=== PATIENT | female | born 1985 | race Caucasian/White ===

== ENCOUNTER 2017-06-26 01:12 | Emergency (ER) | payer OTHER ==
[~2017-06-26] VITALS: Ht 152.4 cm; Wt 73.0 kg
[~2017-06-26 01:12] MED LIST: AMOXICILLIN500 MG OR; AMOXICILLIN500 MG PO; CEPHALEXIN500 M1 PO; CEPHALEXIN500 MG PO; CIPRO500 MG OR; CLARITIN10 MG OR; DENIES CURRENT MEDS; FIORICET PO; FLEXERIL OR; FLONASE SPRAY50 MC1; IRON160 MG OR; LORTAB 5 OR; MIRENA IU; MULT VITAMIN OR; NAPROSYN500 MG OR; NO HOME MEDS; PERCOCET 5/325M1 TAB OR; ROBITUSSIN AC10 ML OR; ULTRAM50 M1 PO; ZOFRAN4 MG/TAB PO
[2017-06-26] MEDS ORDERED: AMOXICILLIN500 MG PO (01:55)
[2017-06-26] MEDS ORDERED: LORTAB 1010 MG PO (01:55)
[2017-06-26 02:07] VITALS: BP 161/99
== END 2017-06-26 02:40 | disposition home or self-care (01) | DRG 159 ==
LOC: ED 01:12
DX: K04.7 Periapical abscess without sinus (principal); F17.210 Nicotine dependence, cigarettes, uncomplicated; K08.89 Other specified disorders of teeth and supporting structures; S02.5XXA Fracture of tooth (traumatic), initial encounter for closed fracture

== ENCOUNTER 2018-01-18 18:10 | Emergency (ER) | payer OTHER ==
[~2018-01-18] VITALS: Ht 152.4 cm; Wt 79.5 kg
[~2018-01-18 18:10] MED LIST changes: +LORTAB 1010 MG PO
[2018-01-18] MEDS ORDERED: MOTRIN400 MG PO (18:39)
[2018-01-18] MEDS ORDERED: AUGMENTIN875TAB PO (18:39)
[2018-01-18 19:00] VITALS: BP 138/81
== END 2018-01-18 19:00 | disposition home or self-care (01) ==
LOC: ED 18:10
DX: K08.89 Other specified disorders of teeth and supporting structures (principal); K03.81 Cracked tooth; F17.210 Nicotine dependence, cigarettes, uncomplicated

== ENCOUNTER 2021-12-10 16:24 | Emergency (ER) | payer OTHER ==
[~2021-12-10] VITALS: Ht 152.4 cm; Wt 81.0 kg
[~2021-12-10 16:24] MED LIST changes: +AUGMENTIN875TAB PO; +MOTRIN400 MG PO
[2021-12-10 16:30] VITALS: BP 124/67
[2021-12-10 16:46] VITALS: BP 135/72
[2021-12-10 17:17] LABS: HEMATOCRIT 40.2 % (37.0-47.0); HEMOGLOBIN 12.9 g/dl (12.0-16.0); IMMATURE GRANULOCYTES 0.3 % (0.0-5.0); MEAN CORPUSCULAR HGB 32.1 pG CALC (26.0-32.0); MEAN CORPUSCULAR HGB CONC 32.1 g/dL CAL (32.0-36.0); NEUT# 16.13 thou/uL (2.00-7.15); RED BLOOD COUNT 4.02 mill/uL (4.20-5.60); RED CELL DISTRI WIDTH 13.5 % (11.5-15.5)
[2021-12-10 17:24] LABS: ALKALINE PHOSPHATASE 59 u/l (38-126); ANION GAP 12 (6-22 (CALC)); BILIRUBIN, TOTAL 0.3 mg/dL (0.0-1.4); BUN 8 mg/dL (7-17); BUN/CREATININE RATIO 11 (12-20 (CALC)); CHLORIDE 109 mmol/l (95-108); CREATININE 0.7 mg/dL (0.5-1.0); ETHYL ALCOHOL 0 mg/dl (0-30); GFR FOR AFR.AMER. > 60 ML/MIN (>=60 (CALC)); GFR OTHER RACES > 60 ML/MIN (>=60 (CALC)); SGOT/AST 17 u/l (14-36); SODIUM 140 mmol/l (137-146); TOTAL PROTEIN 6.8 g/dL (6.3-8.2)
[2021-12-10 17:25] LABS: CARBON DIOXIDE 23 mmol/l (22-30)
[2021-12-10 18:05] VITALS: BP 124/67
== END 2021-12-10 17:30 | disposition left against medical advice (07) ==
LOC: ED 16:24
PROVIDERS: Family Medicine
DX: R51.9 Headache, unspecified (principal); D72.829 Elevated white blood cell count, unspecified; M54.50 Low back pain, unspecified; Z91.19 Patient's noncompliance with other medical treatment and regimen

== ENCOUNTER 2022-04-24 21:00 | Emergency (ER) | payer OTHER ==
[~2022-04-24] VITALS: Ht 152.4 cm; Wt 85.9 kg
[2022-04-24] MEDS ORDERED: SUBOXONE1 MI1 SL (21:33)
[2022-04-24] MEDS ORDERED: WELLBUTRIN XL300 MG PO (21:38)
[2022-04-24] MEDS ORDERED: ATORVASTATIN CA10 MG PO (21:39)
[2022-04-24 21:46] VITALS: BP 130/86
== END 2022-04-24 21:46 | disposition home or self-care (01) ==
LOC: ED 21:00
DX: S50.811A Abrasion of right forearm, initial encounter (principal); W22.8XXA Striking against or struck by other objects, initial encounter

== ENCOUNTER 2022-07-08 18:37 | Emergency (ER) | payer OTHER ==
[~2022-07-08] VITALS: Ht 152.4 cm; Wt 84.0 kg
[2022-07-08] VITALS (8 sets, daily range): BP systolic 78–129; BP diastolic 57–70
[~2022-07-08 18:37] MED LIST changes: +ATORVASTATIN CA10 MG PO; +SUBOXONE1 MI1 SL; +WELLBUTRIN XL300 MG PO
[2022-07-08] MEDS ORDERED: VOLTAREN75 MG PO (20:18)
== END 2022-07-08 21:06 | disposition home or self-care (01) ==
LOC: ED 18:37
DX: S83.92XA Sprain of unspecified site of left knee, initial encounter (principal); E78.00 Pure hypercholesterolemia, unspecified; W17.89XA Other fall from one level to another, initial encounter

== ENCOUNTER 2022-12-01 18:24 | Emergency (ER) | payer OTHER ==
[~2022-12-01] VITALS: Ht 152.4 cm; Wt 80.2 kg
[~2022-12-01 18:24] MED LIST changes: +VOLTAREN75 MG PO
[2022-12-01] MEDS ORDERED: LYRICA25 MG PO (18:33)
[2022-12-01 19:00] VITALS: BP 148/79
[2022-12-01 19:05] LABS: BASO% 0.6 % (0-3); HEMATOCRIT 51.6 % (37.0-47.0); HEMOGLOBIN 16.7 g/dl (12.0-16.0); IMMATURE GRANULOCYTES 0.2 % (0.0-5.0); LYMPH% 22.9 % (15-41); MEAN CELL VOLUME 99.4 fL CALC (80.0-100.0); MEAN CORPUSCULAR HGB 32.2 pG CALC (26.0-32.0); MEAN CORPUSCULAR HGB CONC 32.4 g/dL CAL (32.0-36.0); NEUT# 6.99 thou/uL (2.00-7.15); NEUT% 68.3 % (42-76); RED BLOOD COUNT 5.19 mill/uL (4.20-5.60); RED CELL DISTRI WIDTH 13.3 % (11.5-15.5)
[2022-12-01 19:17] LABS: ALBUMIN 4.5 g/dL (3.2-5.0); ALKALINE PHOSPHATASE 100 u/l (38-126); ANION GAP 12 (6-22 (CALC)); BILIRUBIN, TOTAL 0.3 mg/dL (0.02-1.3); BUN 9 mg/dL (7-17); BUN/CREATININE RATIO 9 (12-20 (CALC)); CARBON DIOXIDE 24 mmol/l (22-30); CHLORIDE 106 mmol/l (95-108); GFR FOR AFR.AMER. > 60 ML/MIN (>=60 (CALC)); GFR OTHER RACES > 60 ML/MIN (>=60 (CALC)); POTASSIUM 3.6 mmol/l (3.5-5.1); SGOT/AST 25 u/l (14-36); SODIUM 139 mmol/l (137-146); TOTAL PROTEIN 7.9 g/dL (6.3-8.2)
[2022-12-01 19:28] LABS: URINE BILIRUBIN - DIPSTICK NEGATIVE (NEGATIVE); URINE BLOOD DIPSTICK NEGATIVE (NEGATIVE); URINE COLOR YELLOW; URINE GLUCOSE - DIPSTICK NEGATIVE (NEGATIVE); URINE KETONE NEGATIVE (NEGATIVE); URINE LEUK ESTERASE NEGATIVE (NEGATIVE); URINE PROTEIN - DIPSTICK NEGATIVE (NEG-TRACE); URINE SPECIFIC GRAVITY >=1.030; URINE UROBILINOGEN - DIPSTICK 0.2 E.U./dL (0.2)
[2022-12-01 19:30] VITALS: BP 130/71
[2022-12-01 19:32] LABS: URINE NITRITE - DIPSTICK NEGATIVE (Negative)
[2022-12-01 20:00] VITALS: BP 138/79
[2022-12-01] MEDS ORDERED: METHOCARBAMOL500 MG PO (20:02)
[2022-12-01] MEDS ORDERED: FIORICET PO (20:02)
[2022-12-01 20:30] VITALS: BP 135/82
== END 2022-12-01 21:32 | disposition home or self-care (01) ==
LOC: ED 18:24
PROVIDERS: Nurse Practitioner
DX: G43.909 Migraine, unspecified, not intractable, without status migrainosus (principal); E78.00 Pure hypercholesterolemia, unspecified

== ENCOUNTER 2023-01-18 17:08 | Emergency (ER) | payer OTHER ==
[~2023-01-18] VITALS: Ht 152.4 cm; Wt 83.9 kg
[~2023-01-18 17:08] MED LIST changes: +LYRICA25 MG PO; +METHOCARBAMOL500 MG PO
[2023-01-18 19:00] VITALS: BP 155/89
[2023-01-18 19:30] VITALS: BP 152/82
[2023-01-18 20:00] VITALS: BP 144/93
[2023-01-18] MEDS ORDERED: VOLTAREN - GENE75 MG PO (20:41)
[2023-01-18 21:40] VITALS: BP 142/83
== END 2023-01-18 21:40 | disposition home or self-care (01) ==
LOC: ED 17:08
DX: G43.909 Migraine, unspecified, not intractable, without status migrainosus (principal); S86.911A Strain of unspecified muscle(s) and tendon(s) at lower leg level, right leg, initial encounter; X58.XXXA Exposure to other specified factors, initial encounter